=== PATIENT | female | born 1930 | race Caucasian/White ===

== ENCOUNTER 2017-01-07 08:10 | Emergency (ER) | payer MEDICARE ==
[~2017-01-07] VITALS: Ht 162.6 cm; Wt 50.9 kg
[~2017-01-07 08:10] MED LIST: ALBU8CC IH; ALPR0.5T PO; AMOX875T2 PO; ATOR20TA54 PO; AZTH250C PO; BUPR150T6; BUPR300T51 PO; CALC600T12 PO; CITA20TA12 PO; DNPZ10T PO; DONE5TAB30; FISH OIL500 M1 PO; FLUT16SP NS; FLUT250D IH; LOSA100T8 PO; LSRT50T PO; LUTE10TA2 PO; MEMA28CA PO; MULT-955 PO; OMEP20CA12 PO; ZLP5T
[2017-01-07] MEDS ORDERED: ATN50T PO (08:39)
[2017-01-07] MEDS ORDERED: LOSA100T8 PO (08:39)
[2017-01-07] MEDS ORDERED: [UNRECOGNIZED DRUG - OTHER] PO ONE (08:40)
[2017-01-07] MEDS ORDERED: PERM60CR17 TP (08:51)
[2017-01-07] MEDS ORDERED: HYDR-700 PO (08:51)
[2017-01-07 09:11] VITALS: BP 152/77
== END 2017-01-07 09:05 | disposition home or self-care (01) ==
LOC: ED 08:13
DX: S80.862A Insect bite (nonvenomous), left lower leg, initial encounter (principal); T78.49XA Other allergy, initial encounter; W57.XXXA Bitten or stung by nonvenomous insect and other nonvenomous arthropods, initial encounter; L50.8 Other urticaria
CPT/HCPCS: 99282; A9270

== ENCOUNTER 2017-01-17 09:21 | Emergency (ER) | payer MEDICARE ==
[~2017-01-17] VITALS: Ht 162.6 cm; Wt 55.0 kg
[~2017-01-17 09:21] MED LIST changes: +ATN50T PO; +HYDR-700 PO; +PERM60CR17 TP
[2017-01-17] MEDS ORDERED: hydrOXYzine 25 MG (ATARAX) TABLET PO ONE (10:00)
[2017-01-17] MEDS ORDERED: predniSONE 20 MG (DELTASONE) TABLET PO ONE (10:00)
[2017-01-17] MEDS ORDERED: PRED10TA PO (10:07)
[2017-01-17] MEDS ORDERED: HYDR-700 PO (10:07)
[2017-01-17 10:18] VITALS: BP 120/79
== END 2017-01-17 10:18 | disposition home or self-care (01) ==
LOC: EDUNIT# 09:21 → ED 09:23
DX: S40.862A Insect bite (nonvenomous) of left upper arm, initial encounter (principal); R21 Rash and other nonspecific skin eruption; W57.XXXA Bitten or stung by nonvenomous insect and other nonvenomous arthropods, initial encounter; Y92.89 Other specified places as the place of occurrence of the external cause
CPT/HCPCS: 99283; A9270

== ENCOUNTER 2017-01-22 13:24 | Emergency (ER) | payer MEDICARE ==
[~2017-01-22] VITALS: Ht 162.6 cm; Wt 50.0 kg
[~2017-01-22 13:24] MED LIST changes: +PRED10TA PO
[2017-01-22 13:37] VITALS: BP 145/66
== END 2017-01-22 14:55 | disposition home or self-care (01) ==
LOC: EDUNIT# 13:24 → ED 13:26
DX: R21 Rash and other nonspecific skin eruption (principal)
CPT/HCPCS: 99282

== ENCOUNTER 2017-01-24 06:43 | Emergency (ER) | payer MEDICARE ==
[~2017-01-24] VITALS: Ht 162.6 cm; Wt 50.0 kg
[2017-01-24] MEDS ORDERED: methylPREDNISolone 80 MG/ML (DEPO MEDROL) VIAL IM ONE (08:45)
[2017-01-24] MEDS ORDERED: hydrOXYzine 25 MG (ATARAX) TABLET PO ONE (08:45)
[2017-01-24] MEDS ORDERED: PERM60CR4 TP (08:51)
[2017-01-24] MEDS ORDERED: HYDR50TA77 PO (08:51)
[2017-01-24 08:53] VITALS: BP 134/62
== END 2017-01-24 09:04 | disposition home or self-care (01) ==
LOC: EDUNIT# 06:43 → ED 06:44
DX: R21 Rash and other nonspecific skin eruption (principal)
CPT/HCPCS: 96372; 99282; A9270; J1040; 99283